=== PATIENT | female | born 1950 | race Caucasian/White ===

== ENCOUNTER 2017-08-18 08:20 | Inpatient (IN) | payer MEDICARE, BC ==
[~2017-08-18] VITALS: Ht 167.6 cm; Wt 63.6 kg
[2017-09-20] VITALS (12 sets, daily range): BP systolic 119–154; BP diastolic 42–81; PULSE 48–69; TEMP 97.3–98.1
[2017-09-20] MEDS ORDERED: TIROSINT75 MC1 PO (07:59)
[2017-09-20] MEDS ORDERED: IBU400 MG PO (08:01)
[2017-09-20] MEDS ORDERED: KENALOG DENTAL P5 GM DT (08:01)
[2017-09-20] MEDS ORDERED: MULTIPLE VITAMI1 TA5 PO (08:02)
[2017-09-21 04:26] VITALS: BP 118/46; PULSE 57; TEMP 97.5
[2017-09-21 07:31] LABS: HEMOGLOBIN 11.5 g/dl (12.5-16.0)
[2017-09-21 07:32] LABS: HEMATOCRIT 35.2 % (37.0-47.0)
[2017-09-21 07:45] LABS: CALCIUM 8.8 mg/dL (8.4-10.2); CREATININE, serum 0.79 mg/dL (0.52-1.25)
[2017-09-21 08:12] VITALS: BP 128/53; PULSE 85; TEMP 98.4
[2017-09-21 11:36] VITALS: BP 154/59; PULSE 58; TEMP 98.7
[2017-09-21 15:35] VITALS: BP 156/63; PULSE 55; TEMP 97.8
[2017-09-21 19:39] VITALS: BP 147/62; PULSE 64; TEMP 98
[2017-09-21 23:32] VITALS: BP 131/57; PULSE 67; TEMP 97.9
[2017-09-22 03:55] VITALS: BP 125/59; PULSE 53; TEMP 98.4
[2017-09-22 07:59] VITALS: BP 155/65; PULSE 63; TEMP 97.7
== END 2017-09-22 12:50 | disposition home or self-care (01) | DRG 331 ==
LOC: SURG 09-20 07:33 → INPTSU 09-20 07:33 → SURG 09-20 09:30
PROVIDERS: Surgery
PROC: 8E0W4CZ Robotic Assisted Procedure of Trunk Region, Percutaneous Endoscopic Approach (ICD-10-PCS; 2017-09-20)
PROC: 0DTN4ZZ Resection of Sigmoid Colon, Percutaneous Endoscopic Approach (ICD-10-PCS; principal; 2017-09-20 09:30)
DX: K57.32 Diverticulitis of large intestine without perforation or abscess without bleeding (principal)
CPT/HCPCS: A4314; A9284; J0690; J1100; J1885; J2250; J2405; J2704; J2710; J3010; J7120